=== PATIENT | female | born 1955 | race Caucasian/White ===

== ENCOUNTER → 2016-09-29 | Outpatient (CLI) | payer BC ==
--- NOTE | 2016-09-29 16:32 | BD ---
EXAMINATION TYPE: MG DEXA axial skeleton. DATE OF EXAM: 09/29/2016 COMPARISON: Prior DEXA bone scan August 24, 2014. CLINICAL HISTORY: Osteoporosis per order. Height: 5 FT Weight: 153 FRAX RISK QUESTIONS: Alcohol (3 or more units per day): NO Family History (Parent hip fracture): NO Glucocorticoids (More than 3mos): NO (Ex: prednisone, prednisolone, methylprednisolone, dexamethasone, and hydrocortisone). History of Fracture in Adulthood: NO Secondary Osteoporosis: 1. Type 1 Diabetes: NO 2. Hyperthyroidism: NO 3. Menopause before 45: YES 4. Malnutrition: NO 5. Chronic liver disease: NO Rheumatoid Arthritis: YES Current Tobacco Use: NO RISK FACTORS HISTORY OF: Drink Alcohol: RARELY Active: YES Postmenopausal woman: 45-46 MEDICATIONS: How Long: Additional Medications: CALCIUM, HUMIRA,LIPITOR,MOTRIN, Additional History: EXAM MEASUREMENTS: Bone mineral densitometry was performed using the Intellio System. Bone mineral density as measured about the Lumbar spine is: ----- L1-L4(G/cm2): 1.114 T Score Values are as follows: ----- L2: -0.9 ----- L3: -0.6 ----- L4: -0.2 ----- L1-L4: -0.6 Bone mineral density has: Decreased -3.9% since study of: 2014 Bone mineral density about the R hip (g/cm2): 0.780 Bone mineral density about the L hip (g/cm2): 0.824 T Score values are as follows: -----R Neck: -1.9 -----L Neck: -1.5 -----R Total: -1.6 -----L Total: -1.2 Bone mineral density has: Decreased -1.4 % since study of: 2014 IMPRESSION: Osteopenia (T Score between -2.5 and -1 as noted by T score values in the bilateral hips remains pres ent. There is slightly increased risk of fracture and the patient may be considered for treatment. Re -Screen 2-5 years. NOTE: T-SCORE=SD OF THE YOUNG ADULT MEAN.
== END | disposition home or self-care (01) ==
LOC: RADBDWWP 14:57
PROVIDERS: ATTEND Internal Medicine Rheumatology
DX: M85.88 Other specified disorders of bone density and structure, other site (principal)
CPT/HCPCS: 77080

== ENCOUNTER → 2016-11-27 | Outpatient (CLI) | payer BC ==
--- NOTE | 2016-11-28 09:32 | MM ---
Reason for exam: screening (asymptomatic). Last mammogram was performed 1 year ago. History: Patient is postmenopausal and is nulliparous. Benign excisional biopsy of the right breast, 1979. Benign excisional biopsy of the left breast, 1970. Took estrogen for 1 month. Taking antineoplastic for 6 years beginning at age 46. Physical Findings: A clinical breast exam by your physician is recommended on an annual basis and results should be correlated with mammographic findings. MG Screening Mammo w CAD Bilateral CC and MLO view(s) were taken. Prior study comparison: November 19, 2015, bilateral MG screening mammo w CAD. August 24, 2014, bilateral MG screening mammo w CAD. There are scattered fibroglandular densities. There is no discrete abnormality. ASSESSMENT: Negative, BI-RAD 1 RECOMMENDATION: Routine screening mammogram of both breasts in 1 year.
== END | disposition home or self-care (01) ==
LOC: RADMAMWWP 06:51
PROVIDERS: ATTEND Obstetrics & Gynecology
DX: Z12.31 Encounter for screening mammogram for malignant neoplasm of breast (principal)

== ENCOUNTER 2017-10-15 09:57 | Day surgery (SDC) | payer BC ==
[2017-10-10 09:34] VITALS: BMI 28.9
[~2017-10-15 09:57] MED LIST: LACTATED RINGERS 1,000 ML IV SCH; LIDOCAINE 1% 20 ML VIAL (10MG/ML) FOR IV START INTRADERMA PRN
[2017-10-15 10:43] VITALS: TEMP 97.6
[2017-10-15] MEDS ORDERED: fentaNYL (PF) 50 MCG/ML 2 ML AMP ONE (11:10)
[2017-10-15] MEDS ORDERED: MIDAZOLAM 2 MG/2 ML VIAL ONE (11:10)
[2017-10-15] MEDS ORDERED: PROPOFOL 10 MG/ML 20 ML VIAL IV ONE (11:10)
[2017-10-15 11:43] VITALS: RESP 18
[2017-10-15 12:16] VITALS: BP 121/85; PULSE 71
--- NOTE | 2017-10-15 12:18 | P.PCN ---
Date of Procedure: 10/15/17 Procedure(s) Performed: Procedure: Esophagogastroduodenoscopy and biopsy. Preoperative diagnosis: History of abdominal pain and burping not responding to medical therapy. Postoperative diagnosis: 1. Small sliding hiatal hernia with no obvious esophagitis or complicated reflux disease. 2. Mild antral gastritis. 3. Multiple biopsies obtained from the duodenum, antrum and esophagus. Preparation and sedation; Were provided by anesthesia. Brief clinical history: The patient is a 62-year-old female who is scheduled for this evaluation because of history of abdominal pain of burping go for around 6 weeks duration. This has not responded to empirical therapy with acid suppressive medications. This evaluation is to assess for esophagitis or complicated reflux disease or other pathology. Procedure: With the patient on her left lateral decubitus position and after informed consent and adequate sedation, I passed the Olympus-GIF 160 video upper endoscope through the cricopharyngeus down the esophagus. GE junction was around 36 cm from the incisors and there was a small sliding hiatal hernia. The esophagus did not show any obvious erosions, ulcers, strictures or Lima 's esophagus. The endoscope was then passed into the stomach which was insufflated with air and inspected in detail including the retroflex view in the cardia. There was minimal mottling and erythema in the antrum but no ulcers or erosions. Pyloric channel, duodenal bulb, post bulbar area and descending duodenum appeared within normal limits. Because of her symptoms, I obtained biopsies from the duodenum, antrum and esophagus then the endoscope was withdrawn. The patient tolerated the procedure well. Plan: The patient was reassured. Will await biopsy results. Further plans can be made based on his course and biopsy results. She will follow-up with you as planned and I will be happy to see in the office if her symptoms persist or recur.
== END 2017-10-15 12:41 | disposition home or self-care (01) ==
LOC: ORWHC2ENDO 09:57
DX: K29.50 Unspecified chronic gastritis without bleeding (principal); K21.0 Gastro-esophageal reflux disease with esophagitis; K44.9 Diaphragmatic hernia without obstruction or gangrene; E78.5 Hyperlipidemia, unspecified; M06.9 Rheumatoid arthritis, unspecified; Z79.899 Other long term (current) drug therapy; Z79.1 Long term (current) use of non-steroidal anti-inflammatories (NSAID)
CPT/HCPCS: 88305; 43239; J2250; J3010; J2704

== ENCOUNTER → 2017-12-25 | Outpatient (CLI) | payer BC ==
--- NOTE | 2017-12-27 13:12 | MM ---
Reason for exam: screening (asymptomatic). Last mammogram was performed 1 year and 1 month ago. History: Patient is postmenopausal and is nulliparous. Benign excisional biopsy of the right breast, 1979. Benign excisional biopsy of the left breast, 1970. Took estrogen for 1 month. Taking antineoplastic for 6 years beginning at age 46. Physical Findings: A clinical breast exam by your physician is recommended on an annual basis and results should be correlated with mammographic findings. MG Screening Mammo w CAD Bilateral CC and MLO view(s) were taken. Prior study comparison: November 27, 2016, bilateral MG screening mammo w CAD. November 19, 2015, bilateral MG screening mammo w CAD. There are scattered fibroglandular densities. No significant changes when compared with prior studies. ASSESSMENT: Negative, BI-RAD 1 RECOMMENDATION: Routine screening mammogram of both breasts in 1 year.
== END | disposition home or self-care (01) ==
LOC: RADMAMWWP 12:53
PROVIDERS: ATTEND Obstetrics & Gynecology
DX: Z12.31 Encounter for screening mammogram for malignant neoplasm of breast (principal)
CPT/HCPCS: 77067

== ENCOUNTER 2018-08-09 07:47 | Day surgery (SDC) | payer BC ==
[2018-08-07 11:14] VITALS: BMI 28.7
[~2018-08-09 07:47] MED LIST changes: -LIDOCAINE 1% 20 ML VIAL (10MG/ML) FOR IV START INTRADERMA PRN
[2018-08-09 08:17] VITALS: RESP 16; TEMP 97
--- NOTE | 2018-08-09 09:10 | P.GSHP ---
History of Present Illness H&P Date: 08/09/18 Chief Complaint: Colon polyps Patient here today for colonoscopy. Last colonoscopy 2013. Patient had a rectal polyp at the time. This was shown to be a tubular adenoma. No other complaints at this time. Past Medical History Past Medical History: Hyperlipidemia, Rheumatoid Arthritis (RA) Additional Past Medical History / Comment(s): stomach pains History of Any Multi-Drug Resistant Organisms: None Reported Past Surgical History: Breast Surgery, Orthopedic Surgery Additional Past Surgical History / Comment(s): Colonoscopy; Br biopsies/ benign; partial thyroidectomy; R shoulder arthroscopy, EGD Past Anesthesia/Blood Transfusion Reactions: Postoperative Nausea & Vomiting (PONV) Additional Past Anesthesia/Blood Transfusion Reaction / Comment(s): with partial thyroidectomy Smoking Status: Never smoker - Past Family History Mother Family Medical History: No Reported History Medications and Allergies Home Medications Medication Instructions Recorded Confirmed Type Adalimumab [Humira Pen] 40 mg SQ [id number] 10/10/17 08/07/18 History Atorvastatin Calcium [Lipitor] 10 mg PO HS 10/10/17 08/07/18 History Glucosamine Sulfate 500 mg PO DAILY 10/10/17 08/07/18 History Ibuprofen [Motrin] 800 mg PO BID 10/10/17 08/07/18 History Multivit-Min/Iron/Folic/Lutein 1 each PO DAILY 08/07/18 08/07/18 History [Centrum Silver Women Tablet] Allergies Allergy/AdvReac Type Severity Reaction Status Date / Time No Known Allergies Allergy Verified 08/09/18 08:07 Surgical - Exam Vital Signs Temp Pulse Resp BP Pulse Ox 97.0 F L 77 16 135/78 98 08/09/18 08:16 08/09/18 08:16 08/09/18 08:16 08/09/18 08:16 08/09/18 08:16 Physical exam: General: Well-developed, well-nourished HEENT: Normocephalic, sclerae nonicteric Abdomen: Nontender, nondistended Extremities: No edema Neuro: Alert and oriented Assessment and Plan (1) Colon polyp Narrative/Plan: Will proceed with colonoscopy. Current Visit: Yes Status: Acute Code(s): K63.5 - POLYP OF COLON SNOMED Code(s): 43057068
[2018-08-09] MEDS ORDERED: PROPOFOL 10 MG/ML 20 ML VIAL IV ONE (09:17)
--- NOTE | 2018-08-09 09:40 | P.PCN ---
Date of Procedure: 08/09/18 Procedure(s) Performed: PREOPERATIVE DIAGNOSIS: History of colon polyps POSTOPERATIVE DIAGNOSIS: Rectal polyp, diverticulosis PROCEDURE: Colonoscopy with snare polypectomy ANESTHESIA: MAC SURGEON: Osman Tello M.D. SPECIMENS: Rectal polyp ENDOSCOPIC PROCEDURE: The patient was placed on the endoscopy table in the left decubitus position. The Olympus colonoscope was inserted into the anus and passed under direct visualization to the base of the cecum. The appendiceal orifice was visualized. From that point the scope was slowly withdrawn inspecting all surfaces carefully. There were no neoplastic inflammatory or polypoid lesions throughout the cecum, ascending, transverse, descending, and sigmoid colon. In the rectum there was a small polyp that was removed using the snare with cautery technique. The remainder of the rectum was normal. There was mild diverticulosis seen throughout the colon. Digital rectal examination was normal. The patient was taken to the recovery room in stable condition per anesthesia guidelines. RECOMMENDATIONS: Await biopsy results. Follow-up colonoscopy 5 years.
[2018-08-09 10:04] VITALS: BP 114/72; PULSE 76
== END 2018-08-09 10:22 | disposition home or self-care (01) ==
LOC: ORWHC2ENDO 07:47
PROVIDERS: ATTEND Surgery
DX: Z12.11 Encounter for screening for malignant neoplasm of colon (principal); K62.1 Rectal polyp; Z86.010 Personal history of colon polyps; E78.5 Hyperlipidemia, unspecified; M06.9 Rheumatoid arthritis, unspecified; Z79.1 Long term (current) use of non-steroidal anti-inflammatories (NSAID); Z79.899 Other long term (current) drug therapy
CPT/HCPCS: 88305; 45385; J2704

== ENCOUNTER → 2019-02-12 | Outpatient (CLI) | payer BC ==
--- NOTE | 2019-02-12 16:30 | BD ---
EXAMINATION TYPE: Axial Bone Density DATE OF EXAM: 02/12/2019 COMPARISON: 2017 CLINICAL HISTORY: disorder of bone Height: 5' Weight: 150 FRAX RISK QUESTIONS: Secondary Osteoporosis: Rheumatoid Arthritis: y RISK FACTORS HISTORY OF: Family History of Osteoporosis: y Postmenopausal woman: y MEDICATIONS: Additional Medications: humira,motrin 800 Additional History: EXAM MEASUREMENTS: Bone mineral densitometry was performed using the uromovie System. Bone mineral density as measured about the Lumbar spine is: ----- L1-L4(G/cm2): 1.138 T Score Values are as follows: ----- L2: -0.4 ----- L3: -0.2 ----- L4: -0.5 ----- L1-L4: -0.3 Bone mineral density has: Increased 1.1% since study of: 09/29/2016 Bone mineral density about the R hip (g/cm2): 0.830 Bone mineral density about the L hip (g/cm2): 0.814 T Score values are as follows: -----R Neck: -1.5 -----L Neck: -1.6 -----R Total: -1.6 -----L Total: -1.1 Bone mineral density has: Increased 0.2% since study of: 09/29/2016 IMPRESSION: Osteopenia (T Score between -2.5 and -1). There is slightly increased risk of fracture and the patient may be considered for treatment. Re-Screen 2-5 years. NOTE: T-SCORE=SD OF THE YOUNG ADULT MEAN.
--- NOTE | 2019-02-13 12:01 | MM ---
Reason for exam: screening (asymptomatic). Last mammogram was performed 1 year and 2 months ago. History: Patient is postmenopausal and is nulliparous. Benign excisional biopsy of the right breast, 1979. Benign excisional biopsy of the left breast, 1970. Took estrogen for 1 month. Taking antineoplastic for 6 years beginning at age 46. Physical Findings: A clinical breast exam by your physician is recommended on an annual basis and results should be correlated with mammographic findings. MG Screening Mammo w CAD Bilateral CC and MLO view(s) were taken. Prior study comparison: December 25, 2017, bilateral MG screening mammo w CAD. November 27, 2016, bilateral MG screening mammo w CAD. There are scattered fibroglandular densities. There is no discrete abnormality. No significant changes when compared with prior studies. ASSESSMENT: Negative, BI-RAD 1 RECOMMENDATION: Routine screening mammogram of both breasts in 1 year.
== END | disposition home or self-care (01) ==
LOC: RADMAMWWP 07:37
PROVIDERS: ATTEND Obstetrics & Gynecology
DX: Z12.31 Encounter for screening mammogram for malignant neoplasm of breast (principal); M85.88 Other specified disorders of bone density and structure, other site
CPT/HCPCS: 77067; 77080

== ENCOUNTER → 2020-03-03 | Outpatient (CLI) | payer BC ==
--- NOTE | 2020-03-04 11:36 | MM ---
Reason for exam: screening (asymptomatic). Last mammogram was performed 1 year and 1 month ago. History: Patient is postmenopausal and is nulliparous. Benign excisional biopsy of the right breast, 1979. Benign excisional biopsy of the left breast, 1970. Took estrogen for 1 month. Taking antineoplastic for 6 years beginning at age 46. Physical Findings: A clinical breast exam by your physician is recommended on an annual basis and results should be correlated with mammographic findings. MG Screening Mammo w CAD Bilateral CC and MLO view(s) were taken. Prior study comparison: February 12, 2019, bilateral MG screening mammo w CAD. December 25, 2017, bilateral MG screening mammo w CAD. There are scattered fibroglandular densities. No significant changes when compared with prior studies. ASSESSMENT: Benign, BI-RAD 2 RECOMMENDATION: Routine screening mammogram of both breasts in 1 year.
== END | disposition home or self-care (01) ==
LOC: RADMAMWWP 09:36
PROVIDERS: ATTEND Obstetrics & Gynecology
DX: Z12.31 Encounter for screening mammogram for malignant neoplasm of breast (principal)
CPT/HCPCS: 77067

== ENCOUNTER → 2021-01-07 | Outpatient (CLI) | payer MEDICARE ==
--- NOTE | 2021-01-08 05:06 | MR ---
EXAMINATION TYPE: MR lumbar spine wo con DATE OF EXAM: 01/07/2021 COMPARISON: 04/08/2014 HISTORY: Low back pain down both legs for 4 months. Multiplanar multiecho imaging of the lumbar spine without contrast. There is 6 mm anterior subluxation of L4 in relation L5. There is degenerative disc space narrowing a t L4-5 and L5-S1. There is large posterior central L5-S1 lumbar disc herniation into the spinal canal . This measures 7 mm in diameter. There is however large spinal canal and no significant spinal steno sis at L5-S1. There is facet arthropathy with subluxation at L4-5 with resultant mild to moderate spinal stenosis. There is no lumbar paraspinal mass. Lumbar nerve roots appear normal. There is some neural foraminal narrowing at L4-5 bilaterally due to the disc space narrowing and subluxation. I see no focal bone de struction. IMPRESSION: Degenerative L4-5 spondylolisthesis without change. Spinal stenosis at L4-5 unchanged. Large posterior L5-S1 lumbar disc herniation in the midline without change.
== END | disposition home or self-care (01) ==
LOC: RADMRIMAIN 16:45
PROVIDERS: ATTEND Internal Medicine
DX: M48.061 Spinal stenosis, lumbar region without neurogenic claudication (principal); M51.17 Intervertebral disc disorders with radiculopathy, lumbosacral region; M43.16 Spondylolisthesis, lumbar region
CPT/HCPCS: 72148

== ENCOUNTER → 2021-03-07 | Outpatient (CLI) | payer MEDICARE ==
[2021-03-07 09:27] LABS: Sodium 138 mmol/L (137-145)
[2021-03-07 09:28] LABS: ALT 21 U/L (4-34); AST 24 U/L (14-36); African American GFR (CKD) >90 (>60 ml/min/1.73 sqM); Albumin 3.9 g/dL (3.5-5.0); Alkaline Phosphatase 82 U/L (38-126); Anion Gap 7 mmol/L; Blood Urea Nitrogen 14 mg/dL (7-17); Calcium 9.9 mg/dL (8.4-10.2); Carbon Dioxide 25 mmol/L (22-30); Chloride 106 mmol/L (98-107); Glucose 105 mg/dL (74-99); Non-African American GFR(CKD) 83 (>60 ml/min/1.73 sqM); Potassium 4.3 mmol/L (3.5-5.1); Total Bilirubin 0.4 mg/dL (0.2-1.3); Total Protein 6.8 g/dL (6.3-8.2)
[2021-03-07 09:43] LABS: Appearance,Urine Clear (Clear); Bilirubin,Urine Negative (Negative); Blood,Urine Negative (Negative); Color,Urine Yellow; Glucose,Urine (UA) Negative (Negative); Ketones,Urine Negative (Negative); Leukocyte Esterase,Urine Small (Negative); Mucus,Urine Many /hpf; Nitrite,Urine Negative (Negative); PH, Urine 5.5 (5.0-8.0); Protein,Urine Trace (Negative); RBC,Urine 1 /hpf (0-5); Specific Gravity,Urine 1.028 (1.001-1.035); Squamous Epithelial Cell,Urine 1 /hpf (0-4); Urobilinogen,Urine <2.0 mg/dL (<2.0); WBC,Urine 2 /hpf (0-5)
[2021-03-07 09:48] LABS: HGB 13.5 gm/dL (11.4-16.0); MCH 30.4 pg (25.0-35.0); MCHC 32.1 g/dL (31.0-37.0); MCV 94.5 fL (80.0-100.0); Mean Platelet Volume 7.1; Platelet Count 302 k/uL (150-450); RBC 4.45 m/uL (3.80-5.40); RDW 12.6 % (11.5-15.5); WBC 7.6 k/uL (3.8-10.6)
[2021-03-07 09:50] LABS: Prothrombin Time 10.5 sec (9.0-12.0)
[2021-03-07 09:51] LABS: Partial Thromboplastin Time 22.5 sec (22.0-30.0)
== END | disposition home or self-care (01) ==
LOC: LABPAT 08:22
PROVIDERS: ATTEND Orthopaedic Surgery
DX: Z01.812 Encounter for preprocedural laboratory examination (principal); Z79.01 Long term (current) use of anticoagulants
CPT/HCPCS: 36415; 80053; 81001; 85027; 85610; 85730; 87070; 93005

== ENCOUNTER 2021-03-16 05:49 | Day surgery (SDC) | payer MEDICARE ==
[2021-03-11 08:57] VITALS: BMI 30.8
[~2021-03-16 05:49] MED LIST changes: +DEXAMETHASONE SOD PHOSPHATE 4 MG/ML 1 ML VIAL IV ONE; -LACTATED RINGERS 1,000 ML IV SCH; +LIDOCAINE 1% (10MG/ML) FOR IV START INTRADERMA PRN; +MIDAZOLAM 2 MG/2 ML VIAL IV PRN; +ONDANSETRON 4 MG/2 ML VIAL IVP ONE
[2021-03-16] MEDS: LACTATED RINGERS 1,000 ML IV SCH ×3 (06:45→23:58)
[2021-03-16] MEDS ORDERED: TRANEXAMIC ACID 1,000 MG in SODIUM CHLORIDE 0.9% 100 ML IVPB PRN (07:00)
[2021-03-16] MEDS ORDERED: oxyCODONE ER 10 MG TAB.ER.12H PO PRN (07:00)
[2021-03-16] MEDS ORDERED: DOCUSATE 100 MG CAP PO PRN (07:00)
[2021-03-16] MEDS ORDERED: ONDANSETRON 4 MG/2 ML VIAL IVP PRN ×2 (07:00→10:44)
[2021-03-16] MEDS ORDERED: HYDROmorphone 0.5 MG/0.5 ML SYRINGE IVP PRN ×2 (07:00→10:44)
[2021-03-16] MEDS ORDERED: KETOROLAC 15 MG/ML 1 ML VIAL IVP PRN (07:00)
[2021-03-16] MEDS ORDERED: ACETAMINOPHEN TAB 500 MG TAB PO PRN (07:00)
[2021-03-16] MEDS ORDERED: DEXAMETHASONE SOD PHOSPHATE 10 MG/ML 1 ML VIAL IV PRN (07:00)
[2021-03-16] MEDS ORDERED: FAMOTIDINE 20 MG/2 ML VIAL IVP PRN (07:00)
[2021-03-16] MEDS ORDERED: VANCOMYCIN 1,000 MG in SODIUM CHLORIDE 0.9% 250 ML IVPB PRN (07:00)
[2021-03-16] MEDS ORDERED: KETOROLAC 30 MG/ML 1 ML VIAL ONE (07:06)
[2021-03-16] MEDS ORDERED: TRANEXAMIC ACID 1,000 MG in SODIUM CHLORIDE 0.9% 100 ML IVPB ONE (07:28)
[2021-03-16] MEDS ORDERED: HYDROmorphone (PF) 1 MG/ML ONE (07:35)
[2021-03-16] MEDS ORDERED: GLYCOPYRROLATE 0.2 MG/ML 2 ML VIAL ONE (07:35)
[2021-03-16] MEDS ORDERED: NEOSTIGMINE 1 MG/ML 10 ML VIAL ONE (07:35)
[2021-03-16] MEDS ORDERED: ROCURONIUM 10 MG/ML (5 ML VIAL) IV ONE (07:35)
[2021-03-16] MEDS ORDERED: SODIUM CHLORIDE 0.9% 100 ML BAG ONE (07:35)
[2021-03-16] MEDS ORDERED: MIDAZOLAM 2 MG/2 ML VIAL ONE (07:35)
[2021-03-16] MEDS ORDERED: PROPOFOL 10 MG/ML 20 ML VIAL IV ONE (07:35)
[2021-03-16] MEDS ORDERED: TRANEXAMIC ACID 1,000 MG/10 ML VIAL ONE (07:35)
[2021-03-16] MEDS ORDERED: fentaNYL (PF) 50 MCG/ML 2 ML AMP ONE (07:35)
[2021-03-16] MEDS ORDERED: SUCCINYLCHOLINE CHLORIDE 100 MG/5 ML SYR IV ONE (07:35)
[2021-03-16] MEDS ORDERED: LIDOCAINE 1% INJ 10MG/ML (20 ML MDV) ONE (07:35)
[2021-03-16] MEDS ORDERED: PHENYLEPHRINE-0.9% NACL SYG 1,000 MCG/10 ML SYRINGE ONE (07:35)
[2021-03-16] MEDS ORDERED: KETAMINE 10 MG/ML 20 ML VIAL ONE (07:35)
[2021-03-16] MEDS ORDERED: LABETALOL 5 MG/ML VIAL MDV ONE (07:35)
[2021-03-16] MEDS ORDERED: ROPIVACAINE/EPI/CLONIDINE/KET 50 ML SYRINGE MISCELLANE PRN (07:45)
[2021-03-16] MEDS ORDERED: LACTATED RINGERS 1,000 ML IV ONE (08:41)
--- NOTE | 2021-03-16 10:31 | FL ---
Fluoroscopy HISTORY: Anterior hip replacement 50 seconds fluoroscopy time supplied to the referring clinician. 6 intraoperative C-arm images docum ent the procedure. See dictated report from orthopedic surgery.
[2021-03-16] MEDS ORDERED: HYDROcodone/APAP 5-325MG 1 EACH TAB PO PRN (10:44)
[2021-03-16] MEDS ORDERED: NALOXONE 0.4 MG/ML 1 ML VIAL IV PRN (10:44)
[2021-03-16] MEDS ORDERED: HYDROmorphone 1 MG/ML 1 ML SYRINGE IVP PRN (10:44)
[2021-03-16] MEDS ORDERED: HYDROmorphone 0.2 MG/1 ML SYRINGE IVP PRN (10:44)
--- NOTE | 2021-03-16 11:02 | P.OP ---
Date of Procedure: 03/16/21 Preoperative Diagnosis: 1. Severe right hip arthritis 2. Rheumatoid arthritis 3. Osteopenia Postoperative Diagnosis: Same Procedure(s) Performed: 1. Right direct anterior total hip arthroplasty 2. Application of negative pressure wound dressing less than 50 cm, right hip Implants: 1. [place] Trident II Cup, 48-mm augmented with 2 screws 2. [place] Accolade C Size #2 stem, 132-degrees 3. Biolox Delta 36-mm, -5 mm head Anesthesia: ANIKA Surgeon: Jose Manuel Del Cid Roll Hand #1: Susan Reid Estimated Blood Loss (ml): 150 IV fluids (ml): 1,200 Pathology: none sent Condition: stable Disposition: PACU Indications for Procedure: The patient is a very pleasant 65-year-old female with a medical history significant for rheumatoid arthritis currently taking Orencia who presented to my office with severe right hip arthritis. She had failed over 6 months of nonsurgical treatment and had incapacitating pain. We discussed continued nonsurgical treatment versus surgery. The patient and her elected to go forward with an elective total hip replacement. We discussed the potential risks and complications of a direct anterior total hip replacement including but certainly not limited to risks from anesthesia, superficial infection, delayed wound healing, deep periprosthetic joint infection, aseptic loosening of either component, dislocation, leg length discrepancy damage to local blood vessels or nerves, continued or worsened pain, DVT, PE, other medical complications, need for revision surgery, generalized to satisfaction with surgery, an inability to regain preinjury level of function, and possibly loss of life or limb. The patient understands that she is at a higher risk for having a complication due to her rheumatoid arthritis. The patient was seen in consultation by both internal medicine and rheumatology who cleared her for surgery. She has been off her Orencia prior to surgery. Operative Findings: Diffuse osteopenia both in the acetabulum and femur. The acetabular component was augmented with 2 screws and I chose cemented fixation of the femoral component due to her history of rheumatoid arthritis and poor bone quality. Description of Procedure: The patient was identified in preoperative holding and the correct right leg was marked with my initials. I reviewed the consent form with the patient and all o f her questions were answered. She was then brought back to the operating room. She was given a general anesthetic, preoperative antibiotics, and tranexamic acid on the gurney. The skin over the anterior aspect of her right hip were shaved of all hair. I then examined her leg lengths and she felt 2-3 mm short on the right, operative side. Boots were placed and the patient was carefully transferred onto a hand table. The patient was carefully positioned and a peroneal post was placed. A nonsterile draping was applied. A timeout was then performed identifying the correct patient, operative extremity, and procedure. At this point preoperative imaging was taken using a metallic bar and fluoroscopy to use as a reference to adjust our leg length and offset during surgery. The right leg was then prepped and draped in the standard sterile fashion. I began by making a longitudinal incision for a direct anterior approach to the hip. Skin incision was made with a scalpel dissection was carried down through the subcutaneous fat with electrocautery. The fascia over the tensor was identified and incised sharply in line with the skin incision. I then bluntly developed the interval between the tensor and sartorius. A blunt tipped cobra was placed in the superior femoral neck. The deep fascia was incised and the circumflex vessels identified and controlled with bipolar sealant. Pre-capsular fat was excised and a second Cobra retractor was placed inferior to the neck. I then elevated the rectus off the anterior capsule and a dull tipped retractor was placed over the anterior brim of the acetabulum. The capsule was then split longitudinally over the femoral neck up to the vastus tubercle and fibers of the vastus lateralis. There was a large clear effusion of the right hip. The superior capsular leaflet was raised and the superior Cobra was placed within the capsule. The inferior capsular leaflet was then excised. The femoral neck cut was marked out using the saddle as a reference and verified with fluoroscopy. Retractors were placed in the neck cut was made in line with templating using a sagittal saw. Once the neck cut was completed and the femur dropped traction was applied to the leg with 45 of external rotation. A corkscrew was placed in the femoral head which was then carefully removed, sized to 42 mm, and handed off to the back table. The femoral head and acetabulum both appeared severely arthritic with marked degenerative changes. The superior capsular leaflet previously elevated was excised. The acetabulum was circumferentially exposed. The labrum was removed. The pulvinar was identified and carefully excised. I felt the anterior and posterior montalvo which were both intact. I then began reaming taking care to not over medialize due to the patient's poor bone quality. I then reamed up in 2 mm increments until I had a nice circumferential bed of bleeding cancellus bone. I reamed up to 48 mm reamer. A 48 mm cup was then dispensed. I once again felt the anterior and posterior montalvo which were intact. The acetabulum was thoroughly irrigated. Initially I couldn't get the cup to grab so I used x-ray to verify there was ro om to medialize and then used a 47 mm reamer to medialize. The skin incision was also extended distally to prevent soft tissue impingement. After these maneuvers I had a very good press-fit of the cup which was stable. Due to the patient's poor bone quality I elected to place 2 screws both of which had excellent bite. The cup was stable when stressed. The socket was irrigated and a liner was placed. Attention was then turned to the proximal femur. Releases were performed to elevate the femur using a femoral left. Entrance to the canal was gained using a box osteotome followed by a blunt tipped canal sound. A rasp was used to lateralize. The size 2 broach felt stable and was in line with our templating. I then trialed with a -5 mm head. The hip felt stable with external rotation to 90 and there was no evidence of impingement or subluxation. Fluoroscopy was brought in to verify position of the broach. We also placed a metallic bar to fine tune our leg length and offset. Once we were happy the hip was carefully dislocated. The femur was once again exposed. The proximal femoral canal was irrigated using pulsatile lavage followed by epinephrine- soaked gauze. A cement restrictor was placed distally. Cement was then injected into the proximal femur and pressurized. The size 2 standard offset stem was placed and held until the cement had hardened. Great care taken to remove all extra cement from around the implant. The wound was thoroughly irrigated and the final weight tapped into place to engage the Blanc taper. The socket was irrigated and was verified to be free of any debris. The hip was gently reduced. Soft tissue tension around the hip including the gluteal sling felt adequate. The hip was stable with external rotation. Final fluoroscopic images were taken. We had not our preoperative goals of restoring leg length and offset. The wound was then soaked with a dilute Betadine rinse for 3 minutes. Local anesthetic was injected in the soft tissues. 3 L of sterile saline using pulsatile lavage was irrigated through the wound. A deep drain was placed. The fascia over the tensor was closed using a running bar monofilament suture which was then ran back in the deep subcu. The superficial subcutaneous tissue was closed with a running 20 strata fix. The skin was closed with a running 3-0 Monocryl. Due to the patient's thick layer of subcutaneous fat over the incision and her rheumatoid arthritis I elected to place an incisional wound VAC which was applied over her closed incision. At this point I verified that all instrument, sponge, and sharp counts were correct. The patient was then carefully removed from the handed table and the drapes were taken off. On the gurney once the boots were removed her operative leg felt equal to 1 mm long compared to the left in line with our preoperative plan. The patient was then brought to recovery having tolerated the procedure well. Susan Reid PA-C was required as a skilled treasury assistant due to the complexity of the surgery. Plan: The patient can weight-bear as tolerated on her right leg. She will receive 2 doses of postoperative Ancef. DVT prophylaxis with aspirin 81 mg twice a day. Due to her having a higher risk of wound complication and infection due to her rheumatoid arthritis she will have an incisional wound VAC for 7 days and doxycycline 100 mg twice a day 14 days due to her being a high- risk primary total joint replacement. She will need follow-up in the office in 7 days.
[2021-03-16] MEDS ORDERED: ONDANSETRON 4 MG/2 ML VIAL IVP ONE (11:14)
[2021-03-16] MEDS ORDERED: diphenhydrAMINE 50 MG/ML 1 ML VIAL ONE (11:59)
[2021-03-16] MEDS ORDERED: diphenhydrAMINE 50 MG/ML 1 ML VIAL IVP ONE (12:02)
[2021-03-16] MEDS: traMADol 50 MG TAB PO SCH ×3 (15:22→23:07)
[2021-03-16] MEDS: HYDROcodone/APAP 7.5-325MG 1 EACH TAB PO PRN (16:11)
[2021-03-16] MEDS: IBUPROFEN 800 MG TAB PO SCH (20:45)
[2021-03-16] MEDS: ASPIRIN 81 MG PO SCH (20:48)
[2021-03-16] MEDS ORDERED: ATORVASTATIN 10 MG TAB PO SCH (21:00)
[2021-03-16] MEDS ORDERED: NON FORMULARY DRUG (Glucosamine Sulfate 500 MG Cap) PO SCH (21:00)
[2021-03-16] MEDS ORDERED: SENNOSIDES-DOCUSATE SODIUM 1 EACH TAB PO SCH (21:00)
[2021-03-17] MEDS: HYDROcodone/APAP 7.5-325MG 1 EACH TAB PO PRN (01:17)
[2021-03-17 03:51] VITALS: RESP 17
[2021-03-17] MEDS: IBUPROFEN 800 MG TAB PO SCH (06:59)
[2021-03-17] MEDS: traMADol 50 MG TAB PO SCH ×2 (07:00→12:00)
[2021-03-17] MEDS: ASPIRIN 81 MG PO SCH (07:00)
--- NOTE | 2021-03-17 08:52 | P.PN ---
Subjective Progress Note Date: 03/17/21 Patient doing well this morning. Mild pain in thigh, otherwise doing well. Objective - Vital Signs Vital signs: Vital Signs Temp 99.0 F 03/17/21 08:00 Pulse 100 03/17/21 08:00 Resp 17 03/17/21 08:00 BP 108/69 03/17/21 08:00 Pulse Ox 93 L 03/17/21 08:00 Intake & Output 03/16/21 03/17/21 03/17/21 18:59 06:59 18:59 Intake Total 1750 Output Total 252 90 Balance 1498 -90 Weight 71.5 kg Intake: IV 1650 Oral 100 Output: Drainage 90 Right Hip 90 Emesis 2 Estimated Blood Loss 250 Other: Voiding Method Toilet # Voids 1 3 - Exam Right LE: Prevena wound VAC in place. Hemovac pulled thigh soft and compressible, mild bruising over thigh femoral nerve function intact -- able to actively fire the quadriceps and extend the knee motor and sensory function intact distally Assessment and Plan Plan: POD#1 s/p Right direct anterior JNAET 1. WBAT right LE 2. Pulled hemovac drain 3. Continue Prevena wound VAC 4. DVT prophylaxis with ASA 81 mg BID 5. High risk primary (RA on Orencia) will treat with low dose doxycycline 100 mg bid x 2 weeks 6. PT/OT 7. Discharge home today if passes PT
[2021-03-17] MEDS ORDERED: MULTIVITAMINS, THERA 1 EACH TAB PO SCH (09:00)
[2021-03-17] MEDS ORDERED: NON FORMULARY DRUG (Biotin [Biotin] 10,000 MCG Capsule) PO SCH (09:00)
[2021-03-17] MEDS ORDERED: CHOLECALCIFEROL 25 MCG (1000 IU) TABLET PO SCH (09:00)
[2021-03-17 09:15] LABS: Basophils % (A) 0 %; Eosinophils % (A) 0 %; Lymphocytes # (A) 1.6 k/uL (1.0-4.8); Lymphocytes % (A) 16 %; MCH 30.3 pg (25.0-35.0); MCV 91.6 fL (80.0-100.0); Monocytes # (A) 0.5 k/uL (0-1.0); Monocytes % (A) 5 %; Neutrophils # (A) 7.7 k/uL (1.3-7.7); Neutrophils % (A) 78 %; Platelet Count 231 k/uL (150-450); RBC 3.28 m/uL (3.80-5.40); RDW 13.4 % (11.5-15.5); WBC 9.9 k/uL (3.8-10.6)
[2021-03-17 09:23] LABS: ALT 43 U/L (4-34); AST 62 U/L (14-36); African American GFR (CKD) >90 (>60 ml/min/1.73 sqM); Albumin 2.7 g/dL (3.5-5.0); Albumin/Globulin Ratio 1.1; Alkaline Phosphatase 61 U/L (38-126); Anion Gap 2 mmol/L; Blood Urea Nitrogen 12 mg/dL (7-17); Calcium 8.3 mg/dL (8.4-10.2); Carbon Dioxide 26 mmol/L (22-30); Chloride 105 mmol/L (98-107); Globulin 2.4 g/dL; Glucose 117 mg/dL (74-99); Non-African American GFR(CKD) >90 (>60 ml/min/1.73 sqM); Sodium 133 mmol/L (137-145); Total Bilirubin 0.2 mg/dL (0.2-1.3); Total Protein 5.1 g/dL (6.3-8.2)
[2021-03-17 09:35] LABS: HGB 9.9 gm/dL (11.4-16.0)
--- NOTE | 2021-03-17 09:42 | P.DS ---
Providers Expected date of discharge: 03/17/21 Attending physician: Jose Manuel Del Cid Consults: 03/16/21 10:50 Consult Physician Routine Consulting Provider: Adrianne Lopez Consult Reason/Comments: medical management Do you want consulting provider notified?: Yes Primary care physician: Adrianne Lopez - Discharge Diagnosis(es) (1) Primary osteoarthritis of right hip Current Visit: Yes Status: Acute (2) Status post total hip replacement, right Current Visit: Yes Status: Acute Hospital Course: This is a 65-year-old female with known history of degenerative arthritis of the right hip. The patient presents for evaluation. After discussion and consideration patient elects to proceed with total hip arthroplasty. The patient is seen preoperatively by her primary care physician and cleared for surgery. Patient is admitted to [facility] on 03/16/2021 for right direct anterior total hip arthroplasty. The procedures performed without complication or sequelae. The patient is doing well postoperatively. Labs and vital signs are stable on day of discharge. On day of discharge patient's hip wound vac is in place. There is no surrounding erythema. The drain was removed without difficulty. There is minimal soft tissue swelling to the hip and thigh. Patient has full foot and ankle motion without difficulty or pain. Neurovascular status to the right lower extremity is intact. Patient is discharged to home in stable condition. Pertinent Studies: Laboratory Tests 03/17/21 03/17/21 07:31 07:31 WBC 9.9 RBC 3.28 L Hgb 9.9 L D Hct 30.0 L Sodium 133 L Glucose 117 H Calcium 8.3 L AST 62 H ALT 43 H Total Protein 5.1 L Albumin 2.7 L Patient Condition at Discharge: Stable Plan - Discharge Summary Discharge Rx Participant: Yes New Discharge Prescriptions: New HYDROcodone/APAP 7.5-325MG [Hermitage 7.5-325] 1 - 2 tab PO Q6HR PRN #32 tab PRN Reason: Pain Doxycycline [Vibramycin] 100 mg PO Q12HR #28 capsule Aspirin [Adult Low Dose Aspirin EC] 81 mg PO BID #1 tab Docusate [Colace] 100 mg PO BID #60 capsule traMADol HCL [Ultram] 50 mg PO Q6HR PRN #28 tab PRN Reason: Pain Diclofenac Sodium [Voltaren] 75 mg PO BID #48 tab Ondansetron Odt [Zofran Odt] 4 mg PO Q8HR PRN #14 tab PRN Reason: Nausea Omeprazole 20 mg PO DAILY #30 tab No Action Glucosamine Sulfate 750 mg PO BID Atorvastatin Calcium [Lipitor] 10 mg PO HS Ibuprofen [Motrin] 800 mg PO BID Multivit-Min/Iron/Folic/Lutein [Centrum Silver Women Tablet] 1 each PO DAILY Abatacept [Orencia] 750 mg SQ Q30D Cholecalciferol [Vitamin D3 (25 Mcg = 1000 Iu)] 25 mcg PO DAILY Biotin 10,000 mcg PO DAILY Discharge Medication List Atorvastatin Calcium [Lipitor] 10 mg PO HS 10/10/17 [History] Glucosamine Sulfate 750 mg PO BID 10/10/17 [History] Ibuprofen [Motrin] 800 mg PO BID 10/10/17 [History] Multivit-Min/Iron/Folic/Lutein [Centrum Silver Women Tablet] 1 each PO DAILY 08/07/18 [History] Abatacept [Orencia] 750 mg SQ Q30D 03/11/21 [History] Biotin 10,000 mcg PO DAILY 03/11/21 [History] Cholecalciferol [Vitamin D3 (25 Mcg = 1000 Iu)] 25 mcg PO DAILY 03/11/21 [History] Aspirin [Adult Low Dose Aspirin EC] 81 mg PO BID #1 tab 03/16/21 [Rx] Diclofenac Sodium [Voltaren] 75 mg PO BID #48 tab 03/16/21 [Rx] Docusate [Colace] 100 mg PO BID #60 capsule 03/16/21 [Rx] Doxycycline [Vibramycin] 100 mg PO Q12HR #28 capsule 03/16/21 [Rx] HYDROcodone/APAP 7.5-325MG [Hermitage 7.5-325] 1 - 2 tab PO Q6HR PRN #32 tab 03/16/21 [Rx] Omeprazole 20 mg PO DAILY #30 tab 03/16/21 [Rx] Ondansetron Odt [Zofran Odt] 4 mg PO Q8HR PRN #14 tab 03/16/21 [Rx] traMADol HCL [Ultram] 50 mg PO Q6HR PRN #28 tab 03/16/21 [Rx] Follow up Appointment(s)/Referral(s): [facility], [NON-STAFF] - ([facility] will call you to schedule your in home physical therapy visits. ) Jose Manuel Del Cid MD [Medical Doctor] - 1 Week Activity/Diet/Wound Care/Special Instructions: May bear wt as tolerated w walker. Keep Prevena wound vac until follow up visit.
[2021-03-17] MEDS: LACTATED RINGERS 1,000 ML IV SCH ×2 (10:06)
--- NOTE | 2021-03-17 14:03 | P.CONS ---
History of Present Illness - Reason for Consult Consult date: 03/17/21 - History of Present Illness Meme Simeno, is a 65-year-old female well known to my practice, with known history of osteoarthritis and rheumatoid arthritis with intractable pain in the right hip that failed conservative management . Patient was admitted to [facility] by orthopedic surgery, and underwent right total hip arthroplasty. Medical consultation was requested for management while hospitali zed. Patient was recently seen in our office few days prior to surgery complete physical and clearance for surgery was done in the office. At this time patient is alert and oriented 3 in no apparent distress she denies any complaints there is no fever or chills no headache or dizziness no chest isidra n no shortness of breath no palpitation no cough no nausea or vomiting no abdominal pain no diarrhea no blood in the stools no burning with urination no frequency or urgency and no hematuria, there is no weakness or numbness in any of the extremities no change in vision speech or gait. Past Medical History Past Medical History: Hyperlipidemia, Rheumatoid Arthritis (RA) Additional Past Medical History / Comment(s): Herniated L4-L5, left shoulder pain since receiving CoVid Booster. History of Any Multi-Drug Resistant Organisms: None Reported Past Surgical History: Breast Surgery, Orthopedic Surgery Additional Past Surgical History / Comment(s): Colonoscopy, breast biopsies/ benign, partial thyroidectomy, right shoulder arthroscopy, EGD, epidural steroid injection. Past Anesthesia/Blood Transfusion Reactions: Postoperative Nausea & Vomiting (PONV) Additional Past Anesthesia/Blood Transfusion Reaction / Comm: With partial thyroidectomy. Past Psychological History: No Psychological Hx Reported Smoking Status: Never smoker Past Alcohol Use History: Occasional Past Drug Use History: None Reported - Past Family History Mother Family Medical History: No Reported History Medications and Allergies Home Medications Medication Instructions Recorded Confirmed Type Atorvastatin Calcium [Lipitor] 10 mg PO HS 10/10/17 03/11/21 History Glucosamine Sulfate 750 mg PO BID 10/10/17 03/11/21 History Ibuprofen [Motrin] 800 mg PO BID 10/10/17 03/11/21 History Multivit-Min/Iron/Folic/Lutein 1 each PO DAILY 08/07/18 03/11/21 History [Centrum Silver Women Tablet] Abatacept [Orencia] 750 mg SQ Q30D 03/11/21 03/11/21 History Biotin 10,000 mcg PO DAILY 03/11/21 03/11/21 History Cholecalciferol [Vitamin D3 (25 25 mcg PO DAILY 03/11/21 03/11/21 History Mcg = 1000 Iu)] Aspirin [Adult Low Dose Aspirin EC] 81 mg PO BID #1 tab 03/16/21 Rx Diclofenac Sodium [Voltaren] 75 mg PO BID #48 tab 03/16/21 Rx Docusate [Colace] 100 mg PO BID #60 capsule 03/16/21 Rx Doxycycline [Vibramycin] 100 mg PO Q12HR #28 capsule 03/16/21 Rx HYDROcodone/APAP 7.5-325MG [Walker 1 - 2 tab PO Q6HR PRN #32 tab 03/16/21 Rx 7.5-325] Omeprazole 20 mg PO DAILY #30 tab 03/16/21 Rx Ondansetron Odt [Zofran Odt] 4 mg PO Q8HR PRN #14 tab 03/16/21 Rx traMADol HCL [Ultram] 50 mg PO Q6HR PRN #28 tab 03/16/21 Rx Allergies Allergy/AdvReac Type Severity Reaction Status Date / Time No Known Allergies Allergy Verified 03/16/21 06:21 Physical Exam Vitals: Vital Signs Temp Pulse Pulse Pulse Resp BP BP 03/17/21 02:03 98.9 F 92 17 143/75 03/16/21 19:22 98.0 F 99 18 134/71 03/16/21 16:34 89 129/74 03/16/21 16:03 76 115/76 03/16/21 15:33 89 117/76 03/16/21 15:18 84 119/79 03/16/21 15:03 82 123/77 03/16/21 14:48 82 114/76 03/16/21 14:33 96.8 F L 86 18 164/90 03/16/21 13:30 65 14 121/72 03/16/21 13:00 69 16 126/72 03/16/21 12:30 62 16 115/63 03/16/21 12:15 65 16 121/60 03/16/21 12:00 76 16 146/79 03/16/21 11:45 61 16 119/61 03/16/21 11:30 69 16 119/61 03/16/21 11:15 74 14 125/70 03/16/21 11:00 71 14 116/61 03/16/21 10:45 69 14 125/60 03/16/21 10:44 97.4 F L 74 14 139/65 Pulse Ox 03/17/21 02:03 96 03/16/21 19:22 94 L 03/16/21 16:34 03/16/21 16:03 03/16/21 15:33 03/16/21 15:18 03/16/21 15:03 03/16/21 14:48 03/16/21 14:33 91 L 03/16/21 13:30 98 03/16/21 13:00 98 03/16/21 12:30 96 03/16/21 12:15 98 03/16/21 12:00 92 L 03/16/21 11:45 97 03/16/21 11:30 98 03/16/21 11:15 97 03/16/21 11:00 97 03/16/21 10:45 97 03/16/21 10:44 97 Intake and Output 03/16/21 03/17/21 03/17/21 22:59 06:59 14:59 Intake Total 100 Output Total 92 Balance 8 Intake: Oral 100 Output: Drainage 90 Right Hip 90 Emesis 2 Other: Voiding Method Toilet # Voids 1 3 In general patient is alert and oriented x 3 in no distress HEENT head normocephalic and atraumatic Neck is supple no JVD no goiter no lymphadenopathy no carotid bruit Chest examination is clear to auscultation no crackles no wheezing Cardiac exam reveals regular heart sounds S1 and S2 no gallops no murmurs Abdomen is soft nontender no organomegaly with normal bowel sounds Extremity exam reveals no edema no cyanosis or clubbing Neurological examination reveals no gross focal deficits Results CBC & Chem 7: 03/17/21 07:31 03/17/21 07:31 Assessment and Plan Plan: Status post right total hip arthroplasty Underlying history of osteoarthritis Underlying history of rheumatoid arthritis Underlying history of hypertension Underlying history of hyperlipidemia Home medications reviewed and reordered Will follow closely during this hospitalization
[2021-03-17 14:29] VITALS: BP 110/68; PULSE 106; TEMP 98.7
== END 2021-03-17 14:07 | disposition home health service (06) ==
LOC: OR 05:49 → 4SSUR 13:36 → OR 03-17 14:07
PROVIDERS: ATTEND Orthopaedic Surgery
DX: M16.11 Unilateral primary osteoarthritis, right hip (principal); M25.751 Osteophyte, right hip; M85.80 Other specified disorders of bone density and structure, unspecified site; E78.5 Hyperlipidemia, unspecified; M06.9 Rheumatoid arthritis, unspecified; M81.0 Age-related osteoporosis without current pathological fracture; D64.9 Anemia, unspecified; E55.9 Vitamin D deficiency, unspecified; R63.5 Abnormal weight gain; E89.0 Postprocedural hypothyroidism; Z90.13 Acquired absence of bilateral breasts and nipples; Z98.890 Other specified postprocedural states; Z97.3 Presence of spectacles and contact lenses; Z82.49 Family history of ischemic heart disease and other diseases of the circulatory system; Z83.3 Family history of diabetes mellitus; Z79.1 Long term (current) use of non-steroidal anti-inflammatories (NSAID); Z79.899 Other long term (current) drug therapy; M51.26 Other intervertebral disc displacement, lumbar region; Z79.82 Long term (current) use of aspirin
CPT/HCPCS: 97161; 86900; 86901; 80053; 85025; 86850; 88300; 87635; 73501; 27130; C1776; C1713; J2250; J3370; J1200; J1100; J2710; J0690; J2405; J2001; J3010; J1170; J1885; J2370; J0330; J2704

== ENCOUNTER → 2021-09-08 | Outpatient (CLI) | payer MEDICARE ==
[2021-09-08 08:15] VITALS: BP 138/85; PULSE 71; RESP 16
--- NOTE | 2021-09-08 08:28 | P.CON ---
Consult Note - . Consult date: 09/08/21 Assessment/Plan:: HISTORY OF PRESENT ILLNESS: 65 yr old male as a referral from Dr. Leal presents today with severe and chronic neck pain x 4 months secondary to disc bulges, retrolisthesis, severe C6-C7 stenosis, neuroforaminal stenoses and facet arthropathy for evaluation. She states her pain level is 5 out of 10 in intensity, dull, achy in the left aspect of her cervical spine with radiation of numbness to the left upper extremity and fingers. Pain is provoked with extension and left lateral flexion. Pain is relieved with medications (tramadol, ibuprofen), topicals, injections (BL NIKI S1 1), heat, physical therapy to start in September 2021, massage therapy every week currently, repositioning and rest. Past Medical History: Hyperlipidemia, Rheumatoid Arthritis (RA) Past Surgical History: Partial Thyroidectomy, Breast Biopsy, R Shoulder Arthroscopy, EGD/ Colonoscopy, ESIs Social History: Never smoker, Occasional ETOH use, No illicit drug use. Family History: Mother- No Reported History All: NKDA Meds: See list REVIEW OF ORGAN SYSTEMS: CONSTITUTIONAL: No fevers or chills. No recent weight loss. HEENT: No visual acuity loss, eye pain, difficulties with hearing. No nosebleeds. No difficulty swallowing. RESPIRATORY: Denies any troubles with breathing or dyspnea on exertion. CARDIOVASCULAR: Denies any chest pain, palpitations, or recent heart attacks. GASTROINTESTINAL: Denies fatty food intolerance. Has change in bowel habits and gas bloat. GENITOURINARY: Denies any blood in urine. Has increased urinary frequency. NEUROLOGICAL: + numbness and tingling along the distal extremities. No seizure disorders or headaches. MUSCULOSKELETAL: + back pain SKIN: No skin cancer. No rash. PSYCHIATRIC: Denies current depression or suicidal thoughts. ENDOCRINE: Denies current thyroid disorders. Denies any blood sugar glucose intolerance. HEME/LYMPHATIC: Denies any lumps and bumps around the neck. History of deep venous thrombosis. ALLERGY/IMMUNOLOGY: No immunoglobulin therapy. No immune deficiencies. BREAST: Denies current breast lumps, pain or nipple discharge. Physical Examinations : Constitutional : Cooperative , not in acute distress . HEENT: Neck supple. No Lymphadenopathy. Normal thyroid size . Eyes no ptosis , no icterus, no photophobia . Hearing intact. Normal oropharynx. No Thrush. Respiratory : Chest clear to auscultations bilaterally. No wheezing. No rhonchi. Cardiovascular : Regular rate and rhythm , S1 / S2. No S3 . No S4. Gastrointestinal : Abdomen soft. No tenderness. Bowel sounds x 4. No organomegaly . Genitourinary : Deferred. Neurologic : Cranial nerve II to XII intact. No focal neurological deficits. Psychiatric : alert & oriented x 3. Matching mood & appropriate affect. Judgment & insight intact. Lymphatic No Lymphadenopathy. Musculoskeletal : Cervical Spine Motor strength in the deltoid and biceps: Normal right side. Normal Left side Motor strength biceps and the wrist extensors: Normal right side . Normal left side Motor strength in the triceps muscle: Normal right side. Normal left side Deep tendon reflexes: Normal at the biceps. Normal at Brachioradialis. Normal at triceps Cervical facet loading test: positive bilaterally Vertebral body tenderness to palpation over C7 Spurling test: positive on the L Neck distraction test: positive bilaterally Robinson sign: positive bilaterally Lumbar spine Motor strength lower extremities ,thigh and legs 5/5 Right side , 5/5 Left side Deep tendon reflexes : Normal Knee Jerk. Normal Ankle Jerk Vertebral body tenderness over Lumbar facet Loading Test: positive Right / positive Left Range of motion of the lumbar spine Flexion 30 degrees, extension 10 degrees Straight Leg Raise test: Left/ Right positive at degree Radha test: positive right / positive left. Severe tenderness over the Sacroiliac joint on the Right / Left sides Gaenslen test: positive bilaterally Seated flexion test: positive bilaterally. Imaging: MRI without contrast of the cervical spine from 08/16/21 reviewed Assessment/ Plan : Cervical DDD, Cervical Spondylosis, Cervical Stenosis Recommendation of L interlaminar C7-T1. May need a series of injections, up to 3 within a 6 mo period, for optimal pain relief. Risks, benefits of procedure discussed and patient verbalized understanding. Denies anti- coagulant use or medical history of diabetes. All questions answered. I have spent greater than 50 minutes on patient care today. Dr Mar was available by phone for the evaluation of this patient. The time was used to review the medical records including relevant urine studies and Prescription history (MAPs), review of the available imaging, evaluation and examination of the patient, coordination of care with the medical staff and if applicable ref erring physicians, as well as creation of the medical record PQRS Measure Charge Sheet Mode of Arrival: Ambulatory - Pain Location Neck Non-Pharmacological Interventions: Exercise, Massage Pharmacological Interventions: Medication PQRS Narrative: Smoking Status Never smoker Blood Pressure 138/85 Pain Intensity [Neck] 5 Scale Used Numeric (1 - 10) Hx Alcohol Use (MH) No Home Medications: Ambulatory Orders Atorvastatin Calcium [Lipitor] 10 mg PO HS 10/10/17 Glucosamine Sulfate 750 mg PO BID 10/10/17 Ibuprofen [Motrin] 800 mg PO BID 10/10/17 Multivit-Min/Iron/Folic/Lutein [Centrum Silver Women Tablet] 1 each PO DAILY 08/07/18 Abatacept [Orencia] 750 mg SQ Q30D 03/11/21 Biotin 10,000 mcg PO DAILY 03/11/21 Cholecalciferol [Vitamin D3 (25 Mcg = 1000 Iu)] 25 mcg PO DAILY 03/11/21 Aspirin [Adult Low Dose Aspirin EC] 81 mg PO BID #1 tab 03/16/21 Diclofenac Sodium [Voltaren] 75 mg PO BID #48 tab 03/16/21 Docusate [Colace] 100 mg PO BID #60 capsule 03/16/21 Doxycycline [Vibramycin] 100 mg PO Q12HR #28 capsule 03/16/21 HYDROcodone/APAP 7.5-325MG [Rarden 7.5-325] 1 - 2 tab PO Q6HR PRN #32 tab 03/16/21 Omeprazole 20 mg PO DAILY #30 tab 03/16/21 Ondansetron Odt [Zofran Odt] 4 mg PO Q8HR PRN #14 tab 03/16/21 traMADol HCL [Ultram] 50 mg PO Q6HR PRN #28 tab 03/16/21
== END ==
LOC: PNWHC3 07:55
PROVIDERS: ATTEND Specialist
DX: M50.10 Cervical disc disorder with radiculopathy, unspecified cervical region (principal); M47.22 Other spondylosis with radiculopathy, cervical region; M48.02 Spinal stenosis, cervical region; E78.5 Hyperlipidemia, unspecified; M06.9 Rheumatoid arthritis, unspecified
CPT/HCPCS: 99202; 99211

== ENCOUNTER → 2021-09-21 | Outpatient (CLI) | payer MEDICARE ==
--- NOTE | 2021-09-22 06:39 | US ---
EXAMINATION TYPE: US thyroid st tissue head/neck DATE OF EXAM: 09/21/2021 COMPARISON: Prior ultrasound December 05, 2011 CLINICAL HISTORY: E04.2 NONTOXIC MULTINODULAR GOITER. Patient states she had her right thyroid gland removed in 2002 due to enlarged size. Not on thyroid meds. Previous imaging here showed possible rig ht residual gland. GLAND SIZE: Right Lobe: Surgically absent Left Lobe: 4.3 x 2.5 x 2.1 cm Overall Parenchyma: heterogeneous Isthmus Thickness: 0.1 cm NODULES RIGHT: In area of right thyroid fossa, area visualized = 1.4 x 0.7 x 0.7 cm LEFT: # of nodules measured on left: 2 1. 2.2 X 1.8 x 1.5 cm, lower mid, mixed cystic and solid, isoechoic nodule, which is wider than rde l, with smooth margins, without echogenic foci. TR 2 lesion. Prior size: no recent prior 2. 0.4 X 0.5 x 0.3 cm, lower medial, mixed cystic and solid, isoechoic nodule, which is wider than tall, with smooth margins, without echogenic foci. Prior size: no recent prior ISTHMUS: # of nodules measured in the isthmus: 0 Bilateral neck scanned, no evidence of lymphadenopathy. Small suspicious hypoechoic tissue now identified at the right thyroid bed. Heterogeneous left thyroi d lobe redemonstrated with 2.2 cm mixed nodule, TR 2 lesion. IMPRESSION: Suspect residual but cannot exclude recurrent tissue right thyroid bed. New or more promi nent left thyroid posterior mixed nodule but is TR 2 lesion.
== END | disposition home or self-care (01) ==
LOC: RADUSWWP 15:53
PROVIDERS: ATTEND Internal Medicine
DX: E04.2 Nontoxic multinodular goiter (principal)
CPT/HCPCS: 76536

== ENCOUNTER → 2021-10-07 | Outpatient (CLI) | payer MEDICARE ==
--- NOTE | 2021-10-10 08:39 | BD ---
EXAMINATION TYPE: Axial Bone Density DATE OF EXAM: 10/07/2021 COMPARISON: NONE CLINICAL HISTORY: 66 years year old Female. ICD-10 CODE: Z780, N951, [id number] OTHER DISORDER OF BONE DE NSITY Height: 60 Weight: 151.6 FRAX RISK QUESTIONS: Alcohol (3 or more units per day): NO Family History (Parent hip fracture): NO Glucocorticoids (More than 3mos): NO History of Fracture in Adulthood: NO Secondary Osteoporosis: 1. Type 1 Diabetes: NO 2. Hyperthyroidism: NO 3. Menopause before 45: NO 4. Malnutrition: NO 5. Chronic liver disease: NO Rheumatoid Arthritis: YES Current Tobacco Use: NO RISK FACTORS HISTORY OF: Hip Fracture (Right/Left): NO Spine Fracture: NO History of Wrist Fracture: NO Surgery to Spine/Hip(right/left)/Wrist (right/left): RT HIP REPLACEMENT 2020, CARPAL TUNNEL RT 2002 Family History of Osteoporosis: NO Active: YES Diet low in dairy products/other sources of calcium: NO Postmenopausal woman: YES Take estrogen and/or progesterone medications: NO Lost more than 2 inches in height since high school: YES Frequent falls: NO Poor Health: NO Hyperparathyroidism: NO Adrenal Insufficiency: NO MEDICATIONS: Prednisone or other steroids: NO Thyroid Medications: NO Osteoporosis Medications: NO Which medication: How Long: Additional Medications: HUMIRA EVERY 2 WEEK INJECTION, VIT D, CALCIUM, MULTI VIT., BIOTENE, CHOLESTER OL, Additional History: EXAM MEASUREMENTS: Bone mineral densitometry was performed using the [employer] System. Bone mineral density as measured about the Lumbar spine is: ----- L1-L4(G/cm2): 1.153 T Score Values are as follows: ----- L1: -0.5 ----- L2: -0.4 ----- L3: -0.1 ----- L4: -0.2 ----- L1-L4: -0.2 Bone mineral density has: INCREASED 1.9 % since study of: 02/12/2019 Bone mineral density about the L hip (g/cm2): 0.786 T Score values are as follows: -----L Neck: -1.8 -----L Total: -1.3 FRAX%s: The graph provided illustrates a 13.5% chance for a major osteoporotic fx and a 2.3% chance f or the hips probability for fx in 10 years time. IMPRESSION: Osteopenia (T Score between -2.5 and -1). There is slightly increased risk of fracture and the patient may be considered for treatment. Re-Screen 2-5 years. NOTE: T-SCORE=SD OF THE YOUNG ADULT MEAN.
--- NOTE | 2021-10-10 11:45 | MM ---
Reason for Exam: Screening (asymptomatic). Last mammogram was performed 1 year(s) and 7 month(s) ago. Patient History: Menarche at age 10. Patient has no children. Postmenopausal. Estrogen for 1 month. 1979, Benign Excisional Biopsy on the right side. 1970, Benign Excisional Biopsy on the left side. Risk Values: Flavia 5 year model risk: 2.8%. NCI Lifetime model risk: 9.1%. Prior Study Comparison: 12/25/2017 Bilateral Screening Mammogram, [facility]. 02/12/2019 Bilateral Screening Mammogram, [facility]. 03/03/2020 Bilateral Screening Mammogram, [facility]. Tissue Density: The breast tissue is heterogeneously dense. This may lower the sensitivity of mammography. Findings: Analyzed By CAD. There is no suspicious group of microcalcifications or new suspicious mass in either breast. Overall Assessment: Negative, BI-RAD 1 Management: Screening Mammogram of both breasts in 1 year. A clinical breast exam by your physician is recommended on an annual basis and results should be correlated with mammographic findings. Electronically signed and approved by: Ricardo Vizcaino M.D. Radiologis
== END | disposition home or self-care (01) ==
LOC: RADBDWWP 14:28
PROVIDERS: ATTEND Obstetrics & Gynecology
DX: Z12.31 Encounter for screening mammogram for malignant neoplasm of breast (principal); Z78.0 Asymptomatic menopausal state; M85.89 Other specified disorders of bone density and structure, multiple sites
CPT/HCPCS: 77067; 77080

== ENCOUNTER 2021-10-11 07:22 | Day surgery (SDC) | payer MEDICARE ==
[2021-10-10 10:25] VITALS: BMI 29.5
[~2021-10-11 07:22] MED LIST changes: -DEXAMETHASONE SOD PHOSPHATE 4 MG/ML 1 ML VIAL IV ONE; +LACTATED RINGERS 1,000 ML IV SCH; -MIDAZOLAM 2 MG/2 ML VIAL IV PRN; -ONDANSETRON 4 MG/2 ML VIAL IVP ONE
[2021-10-11 07:43] VITALS: RESP 16; TEMP 98.9
[2021-10-11] MEDS ORDERED: MIDAZOLAM 2 MG/2 ML VIAL ONE (08:44)
[2021-10-11] MEDS ORDERED: IOPAMIDOL M200 10 ML VIAL ONE (08:44)
[2021-10-11] MEDS ORDERED: fentaNYL (PF) 50 MCG/ML 2 ML AMP ONE (08:44)
[2021-10-11] MEDS ORDERED: DEXAMETHASONE SOD PHOSPHATE 10 MG/ML 1 ML VIAL ONE (08:44)
--- NOTE | 2021-10-11 09:05 | P.PCN ---
Date of Procedure: 10/11/21 Procedure(s) Performed: . PROCEDURE 1. Cervical epidural steroid injection under fluoroscopic guidance, C7-T1 (fluoroscopy images available in the radiology department ) 2. Cervical epidurogram. PREOPERATIVE DIAGNOSIS: 1- Cervical Degenerative Disc Diseases 2- Cervical spinal stenosis 3-cervical spondylosis with cervical Facet arthropathy without myelopathy POSTOPERATIVE DIAGNOSIS: : 1- Cervical Degenerative Disc Diseases , 2- Cervical spinal stenosis. 3-,cervical spondylosis with cervical Facet arthropathy without myelopathy ANESTHESIA: Local anesthesia with lidocaine 1 % , and moderate sedation, with Versed 2 mg and Fentanyl 100 mcg. EBL 0 PROCEDURE INDICATION: The patient with neck pain and radiculitis unresponsive to conservative treatment consents for procedure. PROCEDURE DESCRIPTION / TECHNIQUE: The patient was seen and identified in the preoperative area. Risks, benefits, complications, including but not limited to infections ,bleeding , allergic reactions to the medications ,and not complete pain releife, and alternatives were discussed with the patient, the patient agreed to proceed with the procedure and signed the consent. Patient was taken to the OR and time out was completed. The patient was placed in the prone position on the procedure table. A pillow was placed under the patients chest to increase the cervical interlaminar space. The cervical area was prepped and draped in the usual sterile fashion. Vital signs were closely monitored during the procedure. Conscious sedation was used during the procedure to decrease patients anxiety. Using anterior-posterior fluoroscopy, the C7-T1 interlaminar space was identified and the skin over this site was marked and then infiltrated with 1% lidocaine subcutaneously. Subsequently, a 20-gauge 3-1/2-inch Tuohy epidural needle was inserted and advanced toward the epidural space by means of the `` hanging-drop technique and guided by AP and lateral fluoroscopy. The correct needle position in the epidural space was verified with the injection of 2 mL of the water soluble contrast dye [id number]-200 and observing an excellent epidurogram with the epidural spread of the dye, after negative aspiration for blood and CSF and in the absence of paresthesias. then, mixture containing 20 mg Dexamethasone and 2 ml of preservative-free normal saline injected and a washout of epidurogram was seen. Needle was withdrawn intact, skin was cleansed, and bandages were applied. Complications= none. Disposition= patient was placed in supine position and transferred to the recovery room area in stable condition and there was no evidence of upper or lower extremity motor or sensory deficit after the procedure patient was discharged from recovery room after discharge criteria met and home discharge instructions was given by the staff and patient will follow with the pain clinic in 2-4 weeks
[2021-10-11] MEDS ORDERED: IV FLUID CONTINUATION 1,000 ML IV ONE (09:10)
[2021-10-11 09:26] VITALS: BP 126/69; PULSE 71
--- NOTE | 2021-10-11 10:01 | FL ---
Fluoroscopy HISTORY: Pain 1 seconds fluoroscopy time supplied to the referring clinician. 1 intraoperative C-arm images docume nt the procedure. See dictated report from anesthesia.
== END 2021-10-11 09:34 | disposition home or self-care (01) ==
LOC: ORPAIN 07:22
PROVIDERS: ATTEND Specialist
DX: M47.22 Other spondylosis with radiculopathy, cervical region (principal); M50.13 Cervical disc disorder with radiculopathy, cervicothoracic region; M48.02 Spinal stenosis, cervical region
CPT/HCPCS: 62321; J2250; J1100; J3010; Q9966

== ENCOUNTER 2021-12-02 18:03 | Emergency (ER) | payer MEDICARE ==
[2021-12-02 18:08] VITALS: RESP 18
[2021-12-02] MEDS ORDERED: MORPHINE SULFATE 4 MG/ML SYRINGE IM STA (18:19)
--- NOTE | 2021-12-02 19:30 | XR ---
EXAMINATION TYPE: XR knee complete LT DATE OF EXAM: 12/02/2021 7:16 PM INDICATION: Patient age:Female; 66 years old; Reason for study: posterior knee pain; PHH. COMPARISON: None. TECHNIQUE: The Left knee(s) was examined in 3 projections. Frontal, lateral and oblique. FINDINGS: No fracture or dislocation. Tricompartmental osteoarthritic changes. Small joint effusion. No radiopaque foreign bodies. IMPRESSION: 1. No acute osseous pathology. 2. Moderate tricompartmental osteoarthritic changes.
--- NOTE | 2021-12-02 19:43 | US ---
EXAMINATION TYPE: US venous doppler duplex LE LT DATE OF EXAM: 12/02/2021 6:20 PM COMPARISON: NONE CLINICAL HISTORY: posterior knee pain. Posterior knee pain. No hx of DVT. Patient does not take blood thinners. SIDE PERFORMED: Left TECHNIQUE: The lower extremity deep venous system is examined utilizing real time linear array sonog micaela with graded compression, doppler sonography and color-flow sonography. VESSELS IMAGED: Common Femoral Vein: Patent and compressible Deep Femoral Vein: Patent and compressible Greater Saphenous Vein *: Patent and compressible Femoral Vein: Patent and compressible Popliteal Vein: Patent and compressible Proximal Calf Veins: Patent and compressible IMPRESSION: 1. No evidence for deep vein thrombosis of the left lower extremity.
[2021-12-02] MEDS ORDERED: ACET/COD 300 MG/30 MG STARTER PACK 6 TAB BTL PO STA (20:28)
--- NOTE | 2021-12-02 20:31 | ED ---
General Adult HPI - General Chief complaint: Extremity Injury, Lower Stated complaint: lt leg injury Time Seen by Provider: 12/02/21 18:10 Source: patient Mode of arrival: ambulatory Limitations: no limitations - History of Present Illness Initial comments: Patient is a 58-year-old female who presents to the emergency department for evaluation of knee pain. Patient states the back of her left knee has been hurting for a couple weeks. Patient states she was getting into her truck today when she felt her knee snap. Patient did not fall. Patient states she feels a lot of pain in the back of her knee when she tries to walk and extend her knee. States pain did not improve after Motrin 800. Denies other injury and pain. Patient denies personal and family history of DVT and PE. Denies hormone use and cancer history. No recent car or airplane travel. States she lives an active lifestyle. - Related Data Home Medications Medication Instructions Recorded Confirmed Atorvastatin Calcium [Lipitor] 10 mg PO HS 10/10/17 12/02/21 Ibuprofen [Motrin] 800 mg PO Q8H PRN 10/10/17 12/02/21 Multivit-Min/Iron/Folic/Lutein 1 tab PO HS 08/07/18 12/02/21 [Centrum Silver Women Tablet] Biotin 10,000 mcg PO DAILY 03/11/21 12/02/21 Cholecalciferol [Vitamin D3 (25 25 mcg PO DAILY 03/11/21 12/02/21 Mcg = 1000 Iu)] Adalimumab [Humira(Cf) Pen] 40 mg SQ Q14D 10/10/21 12/02/21 Marty/D3/Mag11/Zinc/[employer] Assessment Specialist/Dhiraj/Bor 1 tab PO HS 10/10/21 12/02/21 [Caltrate 600+D Plus Tablet] Glucosam/Mike-Msm1/C/Dhiraj/Bosw 2 tab PO DAILY 12/02/21 12/02/21 [Glucosamine-Chondroitin Tablet] Allergies Allergy/AdvReac Type Severity Reaction Status Date / Time No Known Allergies Allergy Verified 12/02/21 18:07 Review of Systems ROS Statement: Those systems with pertinent positive or pertinent negative responses have been documented in the HPI. ROS Other: All systems not noted in ROS Statement are negative. Past Medical History Past Medical History: Hyperlipidemia, Rheumatoid Arthritis (RA) Additional Past Medical History / Comment(s): stomach pains History of Any Multi-Drug Resistant Organisms: None Reported Past Surgical History: Breast Surgery, Orthopedic Surgery Additional Past Surgical History / Comment(s): Colonoscopy; Br biopsies/ benign; partial thyroidectomy; R shoulder arthroscopy, EGD Past Anesthesia/Blood Transfusion Reactions: Postoperative Nausea & Vomiting (PONV) Additional Past Anesthesia/Blood Transfusion Reaction / Comment(s): with partial thyroidectomy Past Psychological History: No Psychological Hx Reported Smoking Status: Never smoker Past Alcohol Use History: Occasional Past Drug Use History: None Reported - Past Family History Mother Family Medical History: No Reported History General Exam Limitations: no limitations General appearance: alert, in no apparent distress Head exam: Present: atraumatic, normocephalic, normal inspection Respiratory exam: Present: normal lung sounds bilaterally. Absent: respiratory distress, wheezes, rales, rhonchi, stridor Cardiovascular Exam: Present: regular rate, normal rhythm, normal heart sounds. Absent: systolic murmur, diastolic murmur, rubs, gallop, clicks Left Upper Leg exam: Present: normal inspection, full ROM. Absent: tenderness, swelling Knee exam: Present: normal inspection, full ROM, tenderness (posteriorly ), full knee extension (pain). Absent: swelling, abrasion, laceration, deformity, crepitus, dislocation, erythema, effusion, posterior draw sign, pain/laxity with valgus, pain/laxity with varus Lower Leg exam: Present: normal inspection, full ROM. Absent: tenderness, swelling, abrasion Course Vital Signs 12/02/21 12/02/21 18:05 21:19 Temperature 98 F 97.8 F Pulse Rate 101 H 94 Respiratory 18 18 Rate Blood Pressure 147/78 134/92 O2 Sat by Pulse 99 96 Oximetry Medical Decision Making - Medical Decision Making This is a 58-year-old female who presents with posterior left knee pain. Thorough history and examination were performed. It is unknown if pain is due to injury today as patient has been experiencing pain for the past couple weeks. The anterior and posterior knee is normal and skin color without erythema, swelling, or ecchymosis. Neurovascularly intact. There is pain with palpation of the posterior knee. Full range of motion. Pain worsening with knee extension. Posterior drawer test causes pain however there is no laxity. Negative anterior drawer test. No pain or laxity with valgus and varus stress. Left knee x-ray is negative for acute process. Venous Doppler of the left lower extremity is negative for DVT. At this time there are no diagnostic studies to explain patient's symptoms. Patient does not have exam findings to suggest ligament or tendon injury however due to her pain level I will refer to laboratory specialist for further evaluation and management, possibly MRI. I did offer patient crutches and knee immobilizer however patient states she has crutches at home and declines knee immobilizer. Dr. Gilbert is my attending. Disposition Clinical Impression: Posterior left knee pain Disposition: HOME SELF-CARE Condition: Good Instructions (If sedation given, give patient instructions): Knee Pain (ED) Additional Instructions: Rest, ice, and elevate the left knee as much as possible. After 24-48 hours if symptoms continue you may apply warm compress. Take medication as directed. After you run out of medication, take Tylenol or Motrin for pain. Do not bear weight on the until orthopedic evaluation. Continue to use crutches.. [facility]. Return to the emergency department if you experience new, concerning, or worsening symptoms. Is patient prescribed a controlled substance at d/c from ED?: No Referrals: Adrianne Lopez MD [Primary Care Provider] - 1-2 days Time of Disposition: 20:31
[2021-12-02 21:22] VITALS: BP 134/92; PULSE 94; TEMP 97.8
== END 2021-12-02 21:22 | disposition home or self-care (01) ==
LOC: EC 18:03
DX: M25.562 Pain in left knee (principal); E78.5 Hyperlipidemia, unspecified
CPT/HCPCS: 99283; 96372; 73562; 93971; J2270

== ENCOUNTER → 2022-10-12 | Outpatient (CLI) | payer MEDICARE ==
--- NOTE | 2022-10-13 08:26 | MM ---
Reason for Exam: Screening (asymptomatic). Last screening mammogram was performed 12 month(s) ago. Patient History: Menarche at age 10. Patient has no children. Postmenopausal. Estrogen for 1 month. 1979, Benign Excisional Biopsy on the right side. 1970, Benign Excisional Biopsy on the left side. Risk Values: Flavia 5 year model risk: 2.9%. NCI Lifetime model risk: 8.7%. Prior Study Comparison: 02/12/2019 Bilateral Screening Mammogram, [facility]. 03/03/2020 Bilateral Screening Mammogram, [facility]. 10/07/2021 Bilateral MG screening mammo w CAD, [facility]. Tissue Density: The breast tissue is heterogeneously dense. This may lower the sensitivity of mammography. Findings: Analyzed By CAD. There is no suspicious group of microcalcifications or new suspicious mass in either breast. Overall Assessment: Benign, BI-RAD 2 Management: Screening Mammogram of both breasts in 1 year. . Patient should continue monthly self-breast exams. A clinical breast exam by your physician is recommended on an annual basis. This exam should not preclude additional follow-up of suspicious palpable abnormalities. Note on Flavia scores and lifetime risk: 1. A Flavia score greater than 3% is considered moderate risk. If this is the case, consider specialist referral to assess eligibility for a risk reducing agent. 2. If overall lifetime risk for the development of breast cancer is 20% or higher, the patient may qualify for future screening with alternating mammogram and breast MRI. Electronically signed and approved by: Ricardo Vizcaino M.D. Radiologis
== END | disposition home or self-care (01) ==
LOC: RADMAMWWP 08:03
PROVIDERS: ATTEND Obstetrics & Gynecology
DX: Z12.31 Encounter for screening mammogram for malignant neoplasm of breast (principal); Z78.0 Asymptomatic menopausal state
CPT/HCPCS: 77063; 77067

== ENCOUNTER → 2023-10-15 | Outpatient (CLI) | payer MEDICARE ==
--- NOTE | 2023-10-16 18:05 | MM ---
Reason for Exam: Screening (asymptomatic). Last screening mammogram was performed 12 month(s) ago. Patient History: Menarche at age 10. Patient has no children. Postmenopausal. Estrogen for 1 month. 1979, Benign Excisional Biopsy on the right side. 1970, Benign Excisional Biopsy on the left side. Risk Values: Flavia 5 year model risk: 2.9%. NCI Lifetime model risk: 8.3%. Prior Study Comparison: 03/03/2020 Bilateral Screening Mammogram, [facility]. 10/07/2021 Bilateral MG screening mammo w CAD, [facility]. 10/12/2022 Bilateral MG 3D screening mammo w/cad, [facility]. Tissue Density: There are scattered areas of fibroglandular density. Findings: Analyzed By CAD. Unchanged asymmetric densities on the left. There is no suspicious group of microcalcifications or new suspicious mass in either breast. Overall Assessment: Benign, BI-RAD 2 Management: Screening Mammogram of both breasts in 1 year. . Patient should continue monthly self-breast exams. A clinical breast exam by your physician is recommended on an annual basis. This exam should not preclude additional follow-up of suspicious palpable abnormalities. Note on Flavia scores and lifetime risk: 1. A Flavia score greater than 3% is considered moderate risk. If this is the case, consider specialist referral to assess eligibility for a risk reducing agent. 2. If overall lifetime risk for the development of breast cancer is 20% or higher, the patient may qualify for future screening with alternating mammogram and breast MRI. Electronically signed and approved by: Leora Lee M.D. Radiologist
== END | disposition home or self-care (01) ==
LOC: RADMAMWWP 09:21
PROVIDERS: ATTEND Internal Medicine
DX: Z12.31 Encounter for screening mammogram for malignant neoplasm of breast (principal); Z78.0 Asymptomatic menopausal state
CPT/HCPCS: 77063; 77067

== ENCOUNTER 2023-10-30 09:06 | Day surgery (SDC) | payer MEDICARE ==
[2023-10-24 10:12] VITALS: BMI 27.3
[2023-10-30 09:27] VITALS: TEMP 97
[2023-10-30] MEDS: IV FLUID CONTINUATION 1,000 ML IV ONE (09:34)
[2023-10-30] MEDS: LACTATED RINGERS 1,000 ML IV SCH (09:34)
[2023-10-30] MEDS ORDERED: PROPOFOL 10 MG/ML 20 ML VIAL IV ONE (10:11)
[2023-10-30] MEDS ORDERED: LIDOCAINE 1% INJ 10MG/ML (20 ML MDV) ONE (10:11)
--- NOTE | 2023-10-30 10:17 | P.GSHP ---
History of Present Illness H&P Date: 10/30/23 Chief Complaint: Colon cancer screening 68-year-old female here for colonoscopy. Last colonoscopy 5 years ago had a hyperplastic polyp of the rectum. Polyp removed on prior colonoscopy shows tubular adenoma. No bowel complaints. No family history of colon cancer. Past Medical History Past Medical History: Hyperlipidemia, Rheumatoid Arthritis (RA), Thyroid Disorder Additional Past Medical History / Comment(s): stomach pains History of Any Multi-Drug Resistant Organisms: None Reported Past Surgical History: Breast Surgery, Joint Replacement, Orthopedic Surgery Additional Past Surgical History / Comment(s): Colonoscopy, benign breast biopsies, partial thyroidectomy, right shoulder arthroscopy, EGD, right hip replacement. Past Anesthesia/Blood Transfusion Reactions: Postoperative Nausea & Vomiting (PONV) Additional Past Anesthesia/Blood Transfusion Reaction / Comment(s): PONV with partial thyroidectomy. Smoking Status: Never smoker - Past Family History Mother Family Medical History: No Reported History Medications and Allergies Home Medications Medication Instructions Recorded Confirmed Type Atorvastatin Calcium [Lipitor] 10 mg PO HS 10/10/17 10/30/23 History Ibuprofen [Motrin] 800 mg PO Q8H PRN 10/10/17 10/30/23 History Multivit-Min/Iron/Folic/Lutein 1 tab PO HS 08/07/18 10/30/23 History [Centrum Silver Women Tablet] Biotin 10,000 mcg PO DAILY 03/11/21 10/30/23 History Cholecalciferol [Vitamin D3 (25 25 mcg PO DAILY 03/11/21 10/30/23 History Mcg = 1000 Iu)] Adalimumab [Humira(Cf) Pen] 40 mg SQ Q14D 10/10/21 10/30/23 History Marty/D3/Mag11/Zinc/[employer] Operator/Dhiraj/Bor 1 tab PO HS 10/10/21 10/30/23 History [Caltrate 600+D Plus Tablet] Glucosam/Mike-Msm1/C/Dhiraj/Bosw 2 tab PO DAILY 12/02/21 10/30/23 History [Glucosamine-Chondroitin Tablet] Levothyroxine Sodium [Synthroid] 50 mcg PO HS 10/24/23 10/30/23 History Allergies Allergy/AdvReac Type Severity Reaction Status Date / Time No Known Allergies Allergy Verified 10/30/23 09:22 Surgical - Exam Vital Signs Temp Pulse Resp BP Pulse Ox 97.0 F L 90 18 161/94 98 07/09/24 09:22 10/30/23 09:22 10/30/23 09:22 10/30/23 09:22 10/30/23 09:22 Physical exam: General: Well-developed, well-nourished HEENT: Normocephalic, sclerae nonicteric Abdomen: Nontender, nondistended Extremities: No edema Neuro: Alert and oriented Assessment and Plan (1) Colon polyp Narrative/Plan: Will proceed with colonoscopy at this time. Current Visit: No Status: Acute Code(s): K63.5 - POLYP OF COLON SNOMED Code(s): 80855665
--- NOTE | 2023-10-30 10:29 | P.PCN ---
Date of Procedure: 10/30/23 Procedure(s) Performed: PREOPERATIVE DIAGNOSIS: Screening with history of adenomatous polyps POSTOPERATIVE DIAGNOSIS: Diverticulosis PROCEDURE: Colonoscopy ANESTHESIA: MAC SURGEON: Osman Tello M.D. SPECIMENS: None ENDOSCOPIC PROCEDURE: The patient was placed on the endoscopy table in the left decubitus position. The Olympus colonoscope was inserted into the anus and passed under direct visualization to the base of the cecum. The appendiceal orifice was visualized. From that point the scope was slowly withdrawn inspecting all surfaces carefully. There were no neoplastic inflammatory or polypoid lesions throughout the cecum, ascending, transverse, descending, sigmoid and rectum. There was mild scattered diverticulosis noted. Digital rectal examination was normal. The patient was taken to the recovery room in stable condition per anesthesia guidelines. RECOMMENDATIONS: Resume diet. Repeat colonoscopy 7 years.
[2023-10-30 10:36] VITALS: RESP 16
[2023-10-30 11:04] VITALS: BP 144/81; PULSE 87
== END 2023-10-30 11:18 | disposition home or self-care (01) ==
LOC: ORWHC2ENDO 09:06
PROVIDERS: ATTEND Surgery
DX: E78.5 Hyperlipidemia, unspecified (principal); E03.9 Hypothyroidism, unspecified; M06.9 Rheumatoid arthritis, unspecified; Z79.890 Hormone replacement therapy; Z79.899 Other long term (current) drug therapy; Z86.010 Personal history of colon polyps
CPT/HCPCS: J2001; J2704; G0121

== ENCOUNTER → 2024-10-31 | Outpatient (CLI) | payer MEDICARE ==
--- NOTE | 2024-10-31 13:30 | MM ---
Reason for Exam: Screening (asymptomatic). Last mammogram was performed 1 year(s) and 1 month(s) ago. Patient History: Menarche at age 10. Patient has no children. Postmenopausal. Estrogen for 1 month. 1979, Benign Excisional Biopsy on the right side. 1970, Benign Excisional Biopsy on the left side. Risk Values: Flavia 5 year model risk: 2.9%. NCI Lifetime model risk: 7.9%. Prior Study Comparison: 10/07/2021 Bilateral MG screening mammo w CAD, [facility]. 10/12/2022 Bilateral MG 3D screening mammo w/cad, [facility]. 10/15/2023 Bilateral MG 3D screening mammo w/cad, [facility]. Tissue Density: There are scattered areas of fibroglandular density. Findings: Analyzed By CAD. There is no suspicious group of microcalcifications or new suspicious mass in either breast. Overall Assessment: Negative, BI-RAD 1 Management: Screening Mammogram of both breasts in 1 year. . Patient should continue monthly self-breast exams. A clinical breast exam by your physician is recommended on an annual basis. This exam should not preclude additional follow-up of suspicious palpable abnormalities. Note on Flavia scores and lifetime risk: 1. A Flavia score greater than 3% is considered moderate risk. If this is the case, consider specialist referral to assess eligibility for a risk reducing agent. 2. If overall lifetime risk for the development of breast cancer is 20% or higher, the patient may qualify for future screening with alternating mammogram and breast MRI. [facility], , 10/31/2024 1:27 PM. Electronically signed and approved by: Zane Treviño M.D.
== END | disposition home or self-care (01) ==
LOC: RADMAMWWP 11:21
PROVIDERS: ATTEND Internal Medicine
DX: Z12.31 Encounter for screening mammogram for malignant neoplasm of breast (principal); R92.323 Mammographic fibroglandular density, bilateral breasts; Z78.0 Asymptomatic menopausal state
CPT/HCPCS: 77063; 77067